=== PATIENT | female | born 1960 | race Caucasian/White ===

== ENCOUNTER 2018-05-11 22:00 | Emergency (ER) | payer BC, OTHER ==
[2018-05-11] MEDS ORDERED: oxyCODONE TAB* 5 MG TAB PO ONE (22:14)
[2018-05-11] MEDS ORDERED: Ibuprofen TAB* 800 MG PO ONE (22:14)
--- NOTE | 2018-05-11 22:21 | ED ---
Lower Extremity - HPI Summary HPI Summary: 58-year-old female presents with left knee injury today. She states she was getting off a stool and missed the step and twisted her knee and landed on her lateral aspect of her left knee. She denies any head injury. No loss conscious. No hip pain. No ankle pain. No other injury. Has not been able to place weight on the area as has been giving out. No previous injury to the knee. Hasn't taking anything for pain. Pain is severe. Barely able to move her knee without extreme pain. Unable to place any weight on the area. - History of Current Complaint Chief Complaint: EDExtremityLower Stated Complaint: LT KNEE INJURY Time Seen by Provider: 05/11/18 22:08 Pain Intensity: 7 - Allergies/Home Medications Allergies/Adverse Reactions: Allergies Allergy/AdvReac Type Severity Reaction Status Date / Time Sulfa (Sulfonamide Allergy Rash Verified 05/11/18 22:05 Antibiotics) PMH/Surg Hx/FS Hx/Imm Hx Endocrine/Hematology History: Denies: Hx Anticoagulant Therapy Cardiovascular History: Denies: Hx Myocardial Infarction Infectious Disease History: No Infectious Disease History: Denies: Traveled Outside the [place] in Last 30 Days - Family History Known Family History: Positive: Hypertension - Social History Alcohol Use: None Substance Use Type: Reports: None Review of Systems Negative: Fever Negative: Chest Pain Negative: Shortness Of Breath Positive: Myalgia - left knee pain All Other Systems Reviewed And Are Negative: Yes Physical Exam Triage Information Reviewed: Yes Vital Signs On Initial Exam: Initial Vitals Temp Pulse Resp BP Pulse Ox 98.3 F 77 16 176/97 94 05/11/18 22:01 05/11/18 22:01 05/11/18 22:01 05/11/18 22:01 05/11/18 22:01 Vital Signs Reviewed: Yes Appearance: Positive: Well-Appearing Skin: Positive: Warm, Dry Head/Face: Positive: Normal Head/Face Inspection Eyes: Positive: Normal, Conjunctiva Clear ENT: Positive: Pharynx normal Respiratory/Lung Sounds: Positive: Clear to Auscultation, Breath Sounds Present Cardiovascular: Positive: Normal, RRR Musculoskeletal: Positive: Limited @ - left knee, Other - tenderness over lateral aspect of left knee, pos ballotment, good pulses, sensation grossly intact Neurological: Positive: Normal Psychiatric: Positive: Normal Diagnostics - Vital Signs Vital Signs Temp Pulse Resp BP Pulse Ox 05/11/18 22:01 98.3 F 77 16 176/97 94 - Laboratory Lab Statement: Any lab studies that have been ordered have been reviewed, and results considered in the medical decision making process. - Radiology knee Xray Interpretation: Positive (See Comments) - potential avulsion fracture tibia Radiology Interpretation Completed By: ED Physician Lower Extremity Course/Dx - Course Course Of Treatment: 58-year-old female presents with left knee injury today. She states she was getting off a stool and missed the step and twisted her knee and landed on her lateral aspect of her left knee. She denies any head injury. No loss conscious. No hip pain. No ankle pain. No other injury. Has not been able to place weight on the area as has been giving out. No previous injury to the knee. Hasn't taking anything for pain. Pain is severe. Barely able to move her knee without extreme pain. Unable to place any weight on the area. On exam tenderness over lateral aspect of the left knee. Limited range of motion with pain. pos ballotment. Unable to assess laxity to the joint due to pain. With mechanism suspect either injuries LCL or meniscus. Neurovascular intact. X-ray read by me and dr hirsch as potential avulsion fracture of the tibia. Placed in knee immobilizer and given crutches and have follow-up with orthopedic. Patient understands agrees with plan. - Diagnoses Differential Diagnosis/HQI/PQRI: Positive: Fracture (Closed), Sprain, Strain Provider Diagnoses: Left knee injury Discharge - Sign-Out/Discharge Documenting (check all that apply): Discharge/Admit/Transfer - Discharge Plan Condition: Good Disposition: HOME Prescriptions: oxyCODONE TAB* [Roxycodone TAB 5 mg*] 5 mg PO Q6H PRN #18 tab MDD 4 PRN Reason: Pain Patient Education Materials: Patellar Fracture (ED) Referrals: [facility] [place] [facility] [Outside] Oliverio Piper MD [Medical Doctor] - Additional Instructions: xray shows potential avulsion fracture of tibia, not patella but directions are the same Use immobilizer Stay off knee as much as possible Ice, elevate, Ibuprofen or Tylenol every 6 hours for pain, use narcotic for break through pain every 6 hours Follow up with ortho Return to ED if develop or any new or worsening symptoms - Billing Disposition and Condition Condition: GOOD Disposition: Home
[2018-05-12 00:26] VITALS: BP 138/89
--- NOTE | 2018-05-12 08:11 | RAD ---
Indication: LEFT knee pain following injury. Unable to bear weight. Comparison: No relevant prior exams available on the [facility] for comparison. Technique: LEFT knee: AP, tunnel, crosstable lateral, sunrise views. Report: Small joint effusion. Irregular 0.7 cm maximum dimension ossific fragment visualized approximating the peripheral lateral margin of the tibial plateau which may represent an age indeterminant fracture fragment or potentially accessory ossicle. Minimal osteophytosis and joint space narrowing at the medial joint compartment. Mild lateral soft tissue swelling. IMPRESSION: Given small joint effusion and lateral soft tissue swelling and acute avulsion fracture from the peripheral lateral margin of the tibial plateau is favored. This may represent the insertion site of the IT band.
== END 2018-05-12 00:24 | disposition home or self-care (01) ==
LOC: ED 22:00
DX: S89.92XA Unspecified injury of left lower leg, initial encounter (principal); X50.1XXA Overexertion from prolonged static or awkward postures, initial encounter; Y93.89 Activity, other specified; Y92.9 Unspecified place or not applicable; Z88.2 Allergy status to sulfonamides; Z82.49 Family history of ischemic heart disease and other diseases of the circulatory system
CPT/HCPCS: 99282; A9270-GY